=== PATIENT | female | born 1975 | race Caucasian/White ===

== ENCOUNTER 2024-09-16 14:49 | Emergency (ER) | payer BC ==
[~2024-09-16] VITALS: Ht 152.4 cm; Wt 99.8 kg
[2024-09-16 14:53] VITALS: O2SAT 99
[2024-09-16 14:56] VITALS: O2SAT 98
[2024-09-16 15:22] LABS: BASOPHILS % 0.4 % (0.0-2.0); EOSINOPHILS % 0.7 % (0.0-5.0); HEMATOCRIT. 46.2 % (36.0-48.0); HEMOGLOBIN. 15.4 g/dL (12.0-16.0); LYMPHOCYTES % 30.5 % (20.0-50.0); MEAN CORPUSCULAR HEMOGLOBIN 29.8 pg (28.0-32.0); MEAN CORPUSCULAR HGB CONC 33.3 g/dL (31.0-37.0); MEAN CORPUSCULAR VOLUME 89.6 fL (81.0-99.0); MEAN PLATELET VOLUME 7.5 fl (7.4-10.4); MONOCYTES % 5.6 % (2.0-8.0); NEUTROPHILS % 62.8 % (40.0-76.0); PLATELET 323 x1000/uL (130-400); RED BLOOD CELL COUNT 5.15 mill/uL (4.2-5.4); RED CELL DISTRIBUTION WIDTH 14.1 % (11.6-14.6)
[2024-09-16 15:29] LABS: POTASSIUM 3.7 mEq/L (3.5-5.1)
[2024-09-16 15:30] LABS: CALCIUM 9.4 mg/dL (8.7-10.4)
[2024-09-16 18:29] VITALS: BP 156/97; PULSE 90; RESP 18; TEMP 37
== END 2024-09-16 18:32 | disposition home or self-care (01) ==
LOC: ER 14:49
DX: R20.0 Anesthesia of skin (principal); E11.9 Type 2 diabetes mellitus without complications; I10 Essential (primary) hypertension
CPT/HCPCS: 36415; 80048; 85025; 99284